=== PATIENT | male | born 1970 | race Caucasian/White ===

== ENCOUNTER 2017-02-08 16:21 | Emergency (ER) | payer MEDICARE, MEDICAID ==
--- NOTE | 2017-02-11 13:43 | ER ---
ADMIT: 02/08/2017 RM/LOC: ER [facility] MR#: [id number] [address] [address] [place] [address] Emergency Room Report SEX: M AGE: 46 : 1970 DATE: 02/08/2017 The patient is a 46-year-old male, who was at home. Apparently, he tripped over a dog, he hit his head on the door. Suddenly he got nausea and dizziness. He did not lose any consciousness but he was brought in. He is extremely anxious and almost rude to the staff. I do not see any injury site on physical examination. PHYSICAL EXAMINATION: VITAL SIGNS: Stable. Sats 97%, blood pressure 189/119, heart rate 93, respirations 20. HEENT: Grossly normal except his pupils are about 2 mm bilaterally but very reactive. LUNGS: Slight wheeze, chronic smoker. HEART: Regular in rate and rhythm. No murmurs. ABDOMEN: Obese, nontender. CHEST WALL: Patent, no tenderness LABORATORY DATA: Labs were done for partial trauma, this is a partial trauma. He is anticoagulated and he fell. His labs showed a CMP that is totally normal except for the calcium which is 8.4. His INR is 1.06 with a PTT of 33.2. His CBC is normal. His CT scan of the neck and head both negative. CLINICAL IMPRESSION: Contusion, minor head injury on anticoagulant. The patient was released home. Follow up with his primary provider Dr. Preciado. Continue his medications. ALFREDA Pena / Arden German MD / jorge JOB #: [id number] CC: Arden German MD, Attending Physician
== END 2017-02-08 17:55 | disposition home or self-care (01) ==
LOC: ER 16:21
DX: S00.93XA Contusion of unspecified part of head, initial encounter (principal); W01.0XXA Fall on same level from slipping, tripping and stumbling without subsequent striking against object, initial encounter

== ENCOUNTER 2017-03-20 14:05 | Emergency (ER) | payer MEDICARE, MEDICAID ==
--- NOTE | 2017-03-28 17:48 | ER ---
ADMIT: 03/20/2017 RM/LOC: ER [facility] MR#: [id number] [address] [address] [place] [address] Emergency Room Report SEX: M AGE: 46 : 1970 DATE: 03/20/2017 ADDENDUM: This patient comes into the ER because he had sudden onset of chest pain earlier this morning today. He does have a history of having an SC last year and he feels like this is similar. When he gets to the ER, I am able to reproduce the pain and he does feel a little short of breath. I started the cardiac routine. He received Maalox which took away his pain immediately. He, however, feels like this is not acid reflux-type of pain. His EKG, chest x-ray, and cardiac enzymes were normal. I did consult with Dr. Pierce concerning treatment of this patient. I then spoke with Dr. Preciado, who thought this patient should be admitted for observation considering his past medical history and symptoms feeling like his previous SC. The patient, however, was very adamant that his anxiety would not let him stay in the hospital and checked out AMA. I did let him know the reasons why we thought he should be observed. He states he will come back if he has increased shortness of breath or pain, and he plans to follow up in the clinic tomorrow, but he refuses to stay in the ER. DIAGNOSIS: Chest pain. Please see my T-sheet. ALFREDA Sue / Joel Pierce MD / modl JOB #: [id number] CC: Joel Pierce MD, Attending Physician Chino Preciado MD, Family Physician
== END 2017-03-20 16:00 | disposition home or self-care (01) ==
LOC: ER 14:05
DX: R07.9 Chest pain, unspecified (principal); F17.210 Nicotine dependence, cigarettes, uncomplicated; I25.2 Old myocardial infarction; F41.9 Anxiety disorder, unspecified; Z95.5 Presence of coronary angioplasty implant and graft; Z90.49 Acquired absence of other specified parts of digestive tract; Z88.0 Allergy status to penicillin; Z79.899 Other long term (current) drug therapy